=== PATIENT | female | born 1980 | race Caucasian/White ===

== ENCOUNTER → 2019-09-30 | Outpatient (CLI) | payer OTHER | LOC: SJCVCIMAG 12:00 | DX: I47.1 Supraventricular tachycardia (principal) ==

== ENCOUNTER 2019-12-07 06:32 | Observation (INO) | payer OTHER ==
[~2019-12-07] VITALS: Ht 170.2 cm; Wt 70.3 kg
[2019-12-07] VITALS (16 sets, daily range): BP systolic 109–123; BP diastolic 72–83
--- NOTE | ~2019-12-07 | P ---
[place] [address] PROCEDURE REPORT Name: NORA L[address] Room #: 200-I ADM IN M.R.#: [id number] Admission: 12/07/19 Attend Phys: Beau Guardado MD Discharge: Date of : 84 Report #: [id number] THIS REPORT FOR: cc: Yared Lehman MD, Neal A. MD Couchonnal, Luis F. MD ~ CC: Beau Lehman DATE OF SERVICE: 12/07/2019 PREOPERATIVE DIAGNOSIS: Supraventricular tachycardia. POSTOPERATIVE DIAGNOSES: 1. Focal atrial tachycardia arising from the high right atrium along the lalo terminalis. 2. Atypical atrioventricular isabel reentrant tachycardia. HISTORY OF PRESENT ILLNESS: The patient is a 39-year-old female who has had a longstanding history of SVT, palpitations, on medications and continues to have breakthroughs and recently wore lunchroom monitor, demonstrating SVT. She is here for EP study and SVT ablation. ANESTHESIA: The patient underwent MAC anesthesia with no anesthesia related complications. The patient underwent informed consent. We discussed the details of the procedure including the risks, which include but not limited to bleeding, vascular damage, stroke, WI, damage to solomon conduction system requiring permanent pacemaker. She understood these risks and is willing to proceed. PROCEDURES PERFORMED: 1. SVT ablation, CPT code 75653. 2. EP with left atrial pacing and recording, CPT code 33000. 3. Program stimulation pacing after IV drug infusion, CPT code 00555. 4. 3D mapping, CPT code 32655. 5. Second pathway ablation, CPT code 38730. DESCRIPTION OF PROCEDURE: The patient was brought to EP laboratory in a fasting and sedated state, prepped and draped in a sterile fashion. She was prepped and draped in a standard fashion. I obtained access to the right femoral vein x 3 and the left femoral vein x 2. In the right femoral vein, I placed an 8-Egyptian and 6-Egyptian short sheath. In the left femoral vein, I placed a 6 and 7-Egyptian short sheath. Later in the case, I added a SR0 sheath to the right femoral vein. Next, under fluoroscopy, 3 quadripolar catheters were placed at the HRA, His and RV position and decapolar catheter was easily positioned into the [address] [place] [address] PROCEDURE REPORT Name: JEFFREYANTOLINNORA L Room #: 200-I [facility] IN [facility]#: [id number] Admission: 12/07/19 Attend Phys: Beau Guardado MD Discharge: Date of : 84 Report #: [id number] coronary sinus, which was utilized for left atrial pacing and recording At baseline, the patient was in sinus rhythm with sinus cycle length of 680 milliseconds, VA interval 155 milliseconds, QRS duration 80 milliseconds, QT interval 365 milliseconds, AH interval 61 milliseconds, and HV interval 41 milliseconds. Next, atrial burst pacing was performed and AV block was noted at 340 milliseconds. AV isabel ERP was noted at 290 milliseconds at a [address] cycle length. Next, ventricular pacing was performed and VA block was noted at 240 milliseconds and it appeared midline. Single ventricular extrastimuli were delivered and VERP was noted at 200 milliseconds at a [address] cycle length with VA conduction that was both midline and decremental. Next, isoproterenol was initiated and aggressive atrial burst pacing was performed. AV block was noted to be 270 milliseconds. Next, single atrial extrastimuli were delivered and at 270 milliseconds at a [address] cycle length, the patient went into SVT #1, which was consistent with an atrial tachycardia. There was a high to low activation noted with a tachycardia cycle length of 350 milliseconds, a septal VA time of 270 milliseconds and there was no obvious P waves as they appeared to be obscured by the T waves. As such, we started prepping, a PentaRay to map this atrial tachycardia. I reinduced the tachycardia and the patient transitioned from SVT 1 to SVT 2. This second SVT appeared to be consistent with an atypical AV isabel reentrant tachycardia. The septal VA time was 210 milliseconds with earliest atrial signals noted at the His catheter. There were negative P waves noted in the inferior leads. I attempted to entrain this tachycardia and after I came off ventricular pacing, the patient then went back into the atrial tachycardia. Of note, when the patient was in the tachycardia that appeared to be consistent with atypical AVNRT. There were periods of time that the patient would develop right bundle branch aberration and there was clearly no change in the tachycardia cycle length. I attempted multiple times to try and entrain SVT #2, but this would either terminate the tachycardia or would put him right back into the atrial tachycardia. At this point, it looks like we were having multiple tachycardias and I decided that I would try to the first ablate map and ablate SVT #1, the atrial tach. Mapping both tachycardias was somewhat challenging as the patient would transition from the A tach to the AVNRT quite frequently. Therefore, I performed 2 maps almost simultaneously. Mapping and ablation of atrial tachycardia. An activation map of the atrial tachycardia showed that this was arising in the high anterior lateral right atrium. It appeared that I was slightly lateral to the right atrial appendage. I performed ablation at the earliest site, and then post-ablation, the patient would have some short runs of atrial tachycardia only lasting about 5-10 beats. After I ablated the atypical AVNRT, I went back to give a few more ablation lesions slightly lateral to where my first 10 lesion sets were performed. Prior to ablation at this site, I did perform pacing from the ablation catheter and there was no phrenic nerve capture at these sites. When I went back the second time to ablate due to the nonsustained atrial tach, I ablated slightly lateral [address] [place] [address] PROCEDURE REPORT Name: NORA LANE Room #: 200-I [facility] IN [facility]#: [id number] Admission: 12/07/19 Attend Phys: Beau Guardado MD Discharge: Date of : 84 Report #: [id number] to the initial lesion sets and there was very fractionated atrial signals here that were quite early and some of these were double potentials suggestive of ____ location. After ablation here and there was no re-inducible atrial tachycardia for the remainder of the case despite isoproterenol therapy. Ablation of atypical AVNRT. The arrhythmia that appeared to be consistent with atypical AVNRT could not be entrained, but I was able to perform an activation map and this was clearly arising from the slow pathway region. I therefore used a SmartTouch ThermoCool ablation catheter via an SR0 sheath to perform ablation of the slow pathway. I performed ablation at 30 benjamin. I was approximately 20 mm below the His signal. Interestingly, the slow pathway had a classic slow pathway potentials, but also very sharp signals within the slow pathway regions. My first ablation lesion resulted in approximately 30-40 seconds of nice slow junctionals. I performed several ablation lesions at this site. At this point, repeat testing was performed on isoproterenol and I could not re-induce the atypical AVNRT. However, as mentioned above, I decided to go back and perform additional ablation for the atrial tachycardia and while performing ablation here, the patient went back into atypical AVNRT. I tried 5 or 6 times to entrain this and it appeared that I entrained this once with a VAHV response and a PPI minus tachycardia cycle length of 240 milliseconds consistent with an atypical AVNRT. Therefore, I went back to the slow pathway region and this time, I went slightly lower than my other ablation lesions and again there were these slow pathway potentials, which were also followed by a sharp potential noted. I performed an additional 4 lesions, the first lesion resulted in 5-10 junctional beats whereas others did not have any junctional. POST-ABLATION TESTING: Post-ablation, the patient was started back on isoproterenol, we tested for about 30 minutes. AV block was noted at 240 milliseconds. Atrial ERP was noted at 200 milliseconds at a [address] cycle length. Aggressive atrial pacing was performed and I could no longer induce atrial tachycardia nor were we seeing any atypical AV isabel reentrant tachycardia. Post-ablation, the patient remained in sinus rhythm with a sinus cycle length of 540 milliseconds, VA interval 110 milliseconds, QRS duration 90 milliseconds, QT interval 355 milliseconds, AH interval 65 milliseconds, and HV interval 41 milliseconds. As such, the procedure was concluded. The patient's catheters and sheaths were pulled and hemostasis obtained. The patient awoke neurologically and hemodynamically intact with no complications and no significant bleeding. CONCLUSIONS: 1. Successful ablation of a focal atrial tachycardia arising from the high right atrium at the lalo terminalis. 2. Successful ablation of atypical AV isabel reentrant tachycardia. 3. Normal SA isabel function. 4. Normal AV isabel function. [address] [place] [address] PROCEDURE REPORT Name: NORA LANE Room #: 200-I ADM IN .R.#: [id number] Admission: 12/07/19 Attend Phys: Beau Guardado MD Discharge: Date of : 84 Report #: [id number] 5. Normal His-Purkinje function. 6. No other inducible arrhythmias on or off isoproterenol. By: [id number] Beau Guardado MD /nt
[2019-12-07] MEDS ORDERED: VERAPAMIL ER180 M1 PO (07:23)
[2019-12-07 07:26] LABS: ABSOLUTE NEUTROPHILS 1.6 thou/uL (1.4-8.2); BASOPHILS 1.3 % (0.0-2.0); EOSINOPHILS 2.3 % (0.0-3.0); HEMATOCRIT 40.1 % (37.0-47.0); HEMOGLOBIN 13.7 gm/dL (12.0-15.0); LYMPHOCYTES 39.4 % (24.0-44.0); MCH 31.9 pg (26.0-34.0); MCHC 34.1 g/dL (28.0-37.0); MCV 93.6 fL (80.0-100.0); MONOCYTES 8.5 % (1.0-8.0); PLATELET COUNT 244 thou/uL (150-400); POLYS 48.5 % (36.0-66.0); RBC 4.28 mil/uL (4.20-5.00); RDW 12.4 % (10.5-14.5); WBC 3.3 thou/uL (4.0-11.0)
[2019-12-07 07:42] LABS: CALCIUM 8.3 mg/dL (8.5-10.1); CREATININE 0.9 mg/dL (0.6-1.0); POTASSIUM 3.7 mmol/L (3.5-5.1)
[2019-12-07 07:46] LABS: PROTIME 10.5 Seconds (9.3-11.4)
[2019-12-07 07:47] LABS: ALBUMIN 4.1 g/dL (3.4-5.0); TOTAL BILIRUBIN 0.8 mg/dL (<0.1-1.0); TOTAL PROTEIN 7.3 g/dL (6.4-8.2)
--- NOTE | 2019-12-07 16:45 | NUR ---
PT ADMITED FROM SAFETY AIDE. ADMISSION HX AND ASSESSMENT COMPLETED. VSS. RIGHT AND LEFT GROIN INCISION C/D/I. NO HEMATOMA NOTED. SR ON TELE. WILL CONTINUE TO MONITOR.
[2019-12-08 00:32] VITALS: BP 96/56
[2019-12-08 04:31] VITALS: BP 100/65
--- NOTE | 2019-12-08 05:24 | NUR ---
pt up in room adlib, bilat groin dressings unchanged, vss, no c/o pain, planes on going home today, will con't to monitor per ppoc.
[2019-12-08 07:07] VITALS: BP 113/77
[2019-12-08] MEDS ORDERED: XARELTO20 MG PO (08:58)
[2019-12-08 09:19] VITALS: BP 113/77
--- NOTE | 2019-12-08 11:03 | NUR ---
ASSUMED CARE AT SHIFT CHANGE, ALERT AND ORIENTED X4. VSS AND NSR ON THE MONITOR. CHRISTINA GRION SITE INTACT WITH MILD TENDERNESS REPORTED BY THE PATIENT. DISCHARGE AND MEDICATION INSTRUCTION GIVEN TO PATIENT, AND PATIENT DISCHARGED HOME.
== END 2019-12-08 10:35 | disposition home or self-care (01) ==
LOC: CATH 06:32 → 2N 14:48 → CATH 15:09 → 2N 12-08 10:35
PROVIDERS: ADMIT Internal Medicine Cardiovascular Disease
DX: I47.1 Supraventricular tachycardia (principal); Z20.828 Contact with and (suspected) exposure to other viral communicable diseases; R06.02 Shortness of breath; R00.2 Palpitations
CPT/HCPCS: 62110; 62900; 70005